=== PATIENT | male | born 1995 | race Two or more races ===

== ENCOUNTER 2018-12-24 19:32 | Emergency (ER) | payer OTHER ==
[~2018-12-24] VITALS: Ht 182.9 cm; Wt 122.5 kg
[2018-12-24] MEDS ORDERED: KETOROLAC TROMETH 15 mg/ml 1ML VL IV ONE (20:15)
[2018-12-24] MEDS ORDERED: LORazepam 2MG/ML-1ML VIAL IV ONE (20:30)
[2018-12-24 20:39] VITALS: BP 137/87
[2018-12-24 21:05] LABS: Basophils # (auto) 0.1 uL; Basophils % (auto) 0.8 % (0.0-2.0); Eosinophils # (auto) 0.2 uL; Eosinophils % (auto) 2.2 % (0.0-7.0); Hematocrit 46.7 % (41.0-53.0); Hemoglobin 15.9 g/dL (13.5-17.5); Lymphocytes # (auto) 2.6 uL; Lymphocytes % (auto) 25.7 % (10.0-50.0); Mean Corpuscular Hgb Conc. 34.1 g/dL (32.0-36.0); Mean Corpuscular Volume 85.1 fL (80.0-100.0); Monocytes # (auto) 0.7 uL; Neutrophils # (auto) 6.5 uL; Neutrophils % (auto) 64.3 % (37.0-80.0); Platelet Count (auto) 233 10^3/uL (140-450); Red Blood Cells 5.48 10^6/uL (4.5-5.90); Red Cell Distribution Width 13.1 % (11.8-14.3); White Blood Cell 10.1 10^3/uL (4.4-10.8)
[2018-12-24 21:22] LABS: Albumin 3.8 g/dL (3.4-5.0); Anion Gap 11 (5-15); Blood Urea Nitrogen 12 mg/dL (7-18); Calcium 8.5 mg/dL (8.5-10.1); Carbon Dioxide 22 mmol/L (21-32); Chloride 108 mmol/L (98-107); Glucose 89 mg/dL (74-106); Potassium 3.8 mmol/L (3.5-5.1); Sodium 141 mmol/L (136-145)
[2018-12-24 21:24] LABS: Alanine Aminotransferase 45 U/L (16-61); Aspartate Aminotransferase 16 U/L (15-37); BUN/Creatinine Ratio 13.8; GFR African American 142 mL/min; GFR Non-African American 118 mL/min
[2018-12-24 21:29] LABS: Alkaline Phosphatase 71 U/L (45-117); Bilirubin, Total 0.3 mg/dL (0.2-1.0); Total Protein 7.7 g/dL (6.4-8.2)
== END 2018-12-24 22:00 | disposition home or self-care (01) ==
LOC: EDBD 19:32 → ER 19:36
DX: R07.89 Other chest pain (principal); M94.0 Chondrocostal junction syndrome [Tietze]; R42 Dizziness and giddiness; R51 Headache; Z88.0 Allergy status to penicillin
CPT/HCPCS: 36415; 71045; 80053; 84484; 85025; 93005; 96374; 96375; 99284; J1885; J2060

== ENCOUNTER 2019-06-03 19:35 | Emergency (ER) | payer OTHER ==
[~2019-06-03] VITALS: Ht 182.9 cm; Wt 125.2 kg
[2019-06-03 21:46] LABS: Basophils # (auto) 0.1 uL; Basophils % (auto) 0.6 % (0.0-2.0); Eosinophils # (auto) 0.4 uL; Eosinophils % (auto) 2.8 % (0.0-7.0); Hematocrit 49.9 % (41.0-53.0); Hemoglobin 16.6 g/dL (13.5-17.5); Lymphocytes # (auto) 2.8 uL; Lymphocytes % (auto) 21.7 % (10.0-50.0); Mean Corpuscular Hemoglobin 28.9 pg (28.0-32.0); Mean Corpuscular Hgb Conc. 33.3 g/dL (32.0-36.0); Mean Corpuscular Volume 86.8 fL (80.0-100.0); Monocytes # (auto) 0.8 uL; Monocytes % (auto) 5.9 % (0.0-12.0); Neutrophils # (auto) 8.8 uL; Nucleated Red Blood Cells % 0.3 %; Platelet Count (auto) 258 10^3/uL (140-450); Red Blood Cells 5.74 10^6/uL (4.5-5.90); Red Cell Distribution Width 13.2 % (11.8-14.3); White Blood Cell 12.8 10^3/uL (4.4-10.8)
[2019-06-03 22:06] LABS: Albumin 3.8 g/dL (3.4-5.0); BUN/Creatinine Ratio 14.8; Calcium 9.2 mg/dL (8.5-10.1); Potassium 3.7 mmol/L (3.5-5.1)
[2019-06-03 22:09] LABS: Bilirubin, Total 0.6 mg/dL (0.2-1.0); Total Protein 8.4 g/dL (6.4-8.2)
[2019-06-04 00:14] VITALS: BP 145/85
== END 2019-06-04 02:08 | disposition left against medical advice (07) ==
LOC: ER 19:38
DX: R10.84 Generalized abdominal pain (principal); R11.2 Nausea with vomiting, unspecified; R19.7 Diarrhea, unspecified; Z53.21 Procedure and treatment not carried out due to patient leaving prior to being seen by health care provider
CPT/HCPCS: 36415; 74176; 80053; 82150; 83690; 85025